=== PATIENT | male | born 1965 | race Caucasian/White ===

== ENCOUNTER 2016-12-07 06:45 | Inpatient (IN) | payer OTHER ==
[~2016-12-07] VITALS: Ht 193 cm; Wt 108.5 kg
--- NOTE | ~2016-12-07 | HP ---
PATIENT'S NAME: TAY GONSALVES [facility] AGE: 51 Y [address] ROOM: [place] [address] [place] [facility] [place]: 12[place]07/2016 History & Physical DISCHARGE DATE: FAMILY PHYSICIAN: Johan Murdock MD ATTENDING PHYSICIAN: QUIN EMMANUEL DATE OF SERVICE: CHIEF COMPLAINT: Nausea and vomiting and diffuse abdominal pain. HISTORY OF PRESENT ILLNESS: This is a 51-year-old male who says that since yesterday around 5 p.m. before his late meal the patient felt this diffuse abdominal pain around intensity 8/10, it felt like a crampy type of pain on and off, lasted for a few minutes without radiation. The patient also felt nauseous, but he did not vomit at that time. He had some food, he had a rib-eye steak and went home; at home, the patient still felt nauseous, therefore, he self-induced vomiting by putting a finger in his throat to cause gag reflex. He vomited about 8-9 times and that he felt much better. This morning, the diffuse abdominal pain came back and also nauseous, but he has not vomited so far. Last time he ate meal was yesterday around 5 p.m., the rib-eye steak. Last time he had a bowel movement was yesterday morning, loose, 1 episode, brown color. Last time he passed flatus was this morning. The patient has had a prior history of colon cancer, status post colectomy without chemotherapy and without radiation and without metastasis and he is in remission and also he never required any colostomy bag. He also had a prior history of appendectomy several years ago. The colon cancer colectomy was roughly 6 years ago. He has never had a small bowel obstruction before. REVIEW OF SYSTEMS: As mentioned in the history of present illness. All other systems were reviewed and were negative except those mentioned in the history of present illness. PAST MEDICAL HISTORY: 1. Colon cancer, status post colectomy, without chemotherapy, without radiation, without metastasis, and also without colostomy bag. That was done roughly 6 years ago and he is in remission according to the patient. 2. Hypertension. 3. Diabetes, type 2. 4. Gastroesophageal reflux disease. PATIENT'S NAME: MAJOR TAY Dwyer [facility] AGE: 51 Y [address] ROOM: [address] [address] [place] [facility] [place]: 12[place]07/2016 History & Physical DISCHARGE DATE: FAMILY PHYSICIAN: Johan Murdock MD ATTENDING PHYSICIAN: QUIN EMMANUEL ALLERGIES: HE IS ALLERGIC TO AN ANTIBIOTIC THAT HE CANNOT REMEMBER, THAT CAUSES RASH. I ASKED HIM TO CALL THE PRIMARY CARE TO FIND OUT, THE PATIENT IS CALLING THE PRIMARY CARE RIGHT NOW. HOME MEDICATIONS: Currently, it has been reconciled. It will be addressed once is ready. SOCIAL HISTORY: The patient is a social alcohol drinker about 5-6 cans of beer roughly 3 days a week. He denies any alcohol withdrawal or any alcohol abuse. He denies any illegal drugs and also denies any cigarette use. FAMILY HISTORY: Father from esophageal cancer at old age. Mother has breast cancer, is still alive. PAST SURGICAL HISTORY: 1. Status post colectomy roughly 6 years ago without colostomy bag. 2. Status post appendectomy many years ago. PHYSICAL EXAMINATION: VITAL SIGNS: At the time of my dictation, temperature 98, blood pressure 140/80, respirations 14, heart rate 85, and saturation 99% on room air. GENERAL APPEARANCE: Alert and oriented x3, in no acute distress. HEENT: Pupils equally round and reactive to light. Extraocular muscles intact. Anicteric sclerae. Nasal turbinates are normal bilaterally. Moist oral mucosa. NECK: No JVD. CARDIOVASCULAR: Regular rate and rhythm. Normal S1, S2. No murmur, no rubs, no gallops. RESPIRATORY: Clear. Chest wall nontender to palpation. No rales, no rhonchi, no wheezing, no crackles. ABDOMEN: Distended. Soft. No abdominal rigidity, no mass. Bowel sounds present but decreased. No ascites. Nontender. EXTREMITIES: No edema in upper or lower extremities. SKIN: No ulcer, no rash, no cyanosis. MUSCULOSKELETAL: No joint pain and also no muscle pain. NEUROLOGIC: Grossly nonfocal. LABORATORY DATA: Troponin less than 0.04, CPK 107. White blood cells 17.1, hemoglobin 18.9, hematocrit 55.5, and platelets 236. Glucose 188, BUN 15, creatinine 0.9, sodium 134, potassium 4.4, chloride 95, and CO2 26. Calcium 10.0, total PATIENT'S NAME: TAY GONSALVES [facility] AGE: 51 Y [address] ROOM: [address] [place] [address] [place] [facility] [place]: 12/07/2016 History & Physical DISCHARGE DATE: FAMILY PHYSICIAN: Johan Murdock MD ATTENDING PHYSICIAN: QUNI EMMANUEL protein 9.5, albumin 4.9, AST 22, ALT 44, alkaline phosphatase 64, total bilirubin 0.7. Anion gap 17.4. GFR more than 60. INR 0.95. PT 26. Urinalysis: Leukocyte negative, negative nitrite, rare bacteria, rare white blood cells. Lipase 142. CK-MB 3.4. IMAGING STUDIES: CT abdomen and pelvis with contrast on admission shows markedly distended stomach with moderately distended proximal small bowel loops and normal- caliber distal small bowel loops. I am uncertain if this may represent early or partial small bowel obstruction versus ileus. Correlation with clinical findings is needed. Fatty infiltration of the liver. Bilateral renal cysts. Postoperative changes of the sigmoid colon. ASSESSMENT/PLAN: 1. Diffuse abdominal pain, nausea and vomiting, secondary to small-bowel obstruction versus ileus: The patient's last bowel movement was yesterday morning, which was loose. Currently, the patient already has NG tube placed and has drained about 700 mL of gastric content about greenish bilious content. Continue NG tube for gastric decompression. N.p.o. Pain control with IV morphine p.r.n. Nausea control with IV Zofran p.r.n. IV fluids for hydration. Also, check a KUB in the morning. Check lactic acid right now. Repeat labs including lactic acid in the morning. Monitor his progress and we will consult General Surgery if necessary. We will continue conservative care for now. The patient is asymptomatic right now. 2. Diabetes, type 2. Check A1c. We will start him on subcutaneous regular insulin, low dose, every 4 hours for now. N.p.o. for now. 3. Hypertension. We will give him IV labetalol p.r.n. and also IV hydralazine p.r.n. while he is n.p.o. I will also add IV Lopressor p.r.n. for heart rate control if needed as well. 4. Gastroesophageal reflux disease. Continue IV Protonix 40 mg p.o. daily one dose right now. 5. DVT prophylaxis: Continue compression devices for now in case he will require any surgical intervention. CODE STATUS: He is a full code. Time spent in care on the day of admission is 35 minutes including 15 minutes was spent on chart review, interview, and also physical examination. The remainder of the time was spent on counseling, including going over the plan of care with the patient, the patient's , and also addressing all their questions and concerns to their satisfaction. Further plan will depend on clinical course. PATIENT'S NAME: TAY GONSALVES [facility] AGE: 51 Y [address] ROOM: [place] [address] [place] [facility] [place]: 12/07/2016 History & Physical DISCHARGE DATE: FAMILY PHYSICIAN: Johan Murdock MD ATTENDING PHYSICIAN: QUIN EMMANUEL QUIN EMAMNUEL MD CC/modl /[id number] D: 833 T: 907 HISTORY & PHYSICAL
--- NOTE | ~2016-12-07 | CON ---
PATIENT'S NAME: TAY GONSALVES [facility] AGE: 51 Y [address] ROOM: [place] [address] [place]: [facility] [place] ADMIT DATE: 12/07/2016 Consultation DISCHARGE DATE: FAMILY PHYSICIAN: Johan Murdock MD ATTENDING PHYSICIAN: QUIN EMMANUEL DATE OF CONSULTATION: 12/09/2016 REFERRING PHYSICIAN: LIA PATTON MD REFERRING PROVIDER: becca Torres. REASON FOR CONSULTATION: Bright red blood per rectum. HISTORY OF PRESENT ILLNESS: This is a very pleasant, 51-year-old gentleman who was admitted originally with diffuse abdominal pain, nausea, and vomiting, likely secondary to ileus. The patient was originally scheduled to be discharged today though had a bowel movement prior to going home that showed evidence of bright red blood per rectum. The patient does have a history of colon cancer, status post resection completed in approximately 2011. He does recall undergoing a full colonoscopy by a surgeon approximately 2-3 years ago. He states at that time, he was notified to return in three years. At this time, his hemoglobin has been stable at 14.6. He does have a history of gastroesophageal reflux disease, currently on omeprazole that has assisted with the symptoms. He does recall that the patient's father did have esophageal cancer. He denies any history of upper endoscopy. The patient currently denies any chest pain, chest pressure, shortness of breath, fever, chills, night sweats, abdominal pain, weight loss, nausea, or vomiting. PAST MEDICAL HISTORY: History of colon cancer, status post colectomy without chemoradiation or metastasis, completed in 2011, hypertension, diabetes mellitus type 2, and gastroesophageal reflux disease. PAST SURGICAL HISTORY: Partial colectomy, colonoscopy 2-3 years ago, left ear surgery, appendectomy, and cystectomy. SOCIAL HISTORY: The patient is a social alcohol drinker. Denies any alcohol withdrawal or abuse. Denies any illicit drug use or tobacco use. FAMILY HISTORY: PATIENT'S NAME: TAY GONSALVES [facility] AGE: 51 Y [address] ROOM: [place] [address] [place] [facility] [place]MIT DATE: 12/07/2016 Consultation DISCHARGE DATE: FAMILY PHYSICIAN: Johan Murdock MD ATTENDING PHYSICIAN: QUIN EMMANUEL The patient's father had esophageal cancer in old age. The patient's mother had breast cancer. Still alive. ALLERGIES: DOXYCYCLINE. CURRENT MEDICATIONS: Please refer to the medication administration record. REVIEW OF SYSTEMS: An all point review of systems was completed. All were negative except for those identified in the history of present illness. PHYSICAL EXAMINATION: GENERAL: A very pleasant, 51-year-old gentleman who appears to be in no acute distress. VITAL SIGNS: Temperature 98.0, pulse of 62, respirations of 21, blood pressure 127/72, and oxygen saturation 96% on room air. SKIN: [place], warm, dry. No jaundice. HEENT: Head is normocephalic and atraumatic. Pupils are equal, round, and reactive to light. Sclerae are clear. Nonicteric. Oral mucosa is pink and moist. No thyromegaly. NECK: Soft and supple. CARDIOVASCULAR: Regular. Normal S1, S2. RESPIRATORY: Respirations even and unlabored. LUNGS: Clear to auscultation. ABDOMEN: Soft, round, nontender, and nondistended. Bowel sounds are positive x4 quadrants. MUSCULOSKELETAL: No muscle weakness or atrophy. EXTREMITIES: No clubbing, cyanosis, or edema. NEUROLOGIC: Grossly nonfocal. LABS AND DIAGNOSTICS: Laboratory obtained on 12/08/2016 showed a white blood cell count of 9.7, hemoglobin of 14.6, hematocrit of 42.6, and platelets of 245. Chemistry panel includes a glucose of 96, BUN of 22, creatinine 0.7. Sodium 139, potassium 3.8, chloride 105, CO2 of 26. Liver enzymes have all been within normal limits. Lipase was 142. Abdominal KUB completed on 12/08/2016 showed nonobstructive bowel gas pattern. ASSESSMENT AND PLAN: Again, this is a very pleasant, 51-year-old gentleman who was admitted with ileus, now resolved. The patient was originally scheduled to be discharged home today though he had a bowel movement with bright red blood per rectum. The patient does have a history of colon cancer, status post resection with PATIENT'S NAME: TAY GONSALVES [facility] AGE: 51 Y [address] ROOM: [place] [address] [place]: [facility] [place]MIT DATE: 12/07/2016 Consultation DISCHARGE DATE: FAMILY PHYSICIAN: Johan Murdock MD ATTENDING PHYSICIAN: QUIN EMMANUEL last colonoscopy done 2-3 years ago. The patient's hemoglobin has been stable though secondary to his history, we do recommend further workup. The patient will undergo colonoscopy. Suprep will be given in preparation for the procedure. In regard to the patient's history of reflux disease as well as family history of esophageal cancer, the patient will undergo an upper endoscopy at the same time for further evaluation and baseline appearance. This was discussed in depth with the patient as he verbalizes understanding. Further recommendations will be given status post upper endoscopy and colonoscopy. Thank you for this consult. RANDY WIN APRN FOR LIA PATTON MD MMF/modl /[id number] d: 12/09/16 2214 t: 12/12/16 0839, CONSULTATION REPORT
--- NOTE | ~2016-12-07 | DS ---
PATIENT'S NAME: TAY GONSALVES [facility] AGE: 51 Y [address] ROOM: [address] [address] LOCATION: [facility] [place] ADMIT DATE: 12/07/2016 Discharge Summary DISCHARGE DATE: 12/09/2016 FAMILY PHYSICIAN: Johan Murdock MD ATTENDING PHYSICIAN: Dov Arias FINAL DIAGNOSES: 1. Ileus. 2. Diabetes mellitus type 2. 3. Essential hypertension. 4. History of colon cancer, status post resection. CONSULTANTS ON THE CASE: None. HOSPITAL COURSE: Please see details of admission and H and P by Dr. Arias. Briefly, the patient was admitted with severe nausea and vomiting and abdominal pain. CT scan showed early small bowel obstruction versus ileus. NG tube was placed for decompression. The patient was covered with sliding scale insulin and Accu-Cheks q.4 h. He was started on normal saline, p.r.n. hydralazine and labetalol were utilized for blood pressure control. The patient got IV morphine and Zofran for pain and nausea and Protonix was utilized for GI prophylaxis. The patient showed significant improvement on hospital day #2. His nausea was much improved, he was passing flatus, NG did have quite a bit of output initially, but quickly tapered off. The patient's abdomen was soft and he had bowel sounds in 4 quadrants. It was decided then to clamp the NG for 4 hours and check for residual and if less than 150 mL NG was discontinued. The patient started on clear liquid diet and was able to advance the next hospital day. The patient tolerated regular food and it was felt that the patient could safely be transferred home and the patient was agreeable to this. The patient was discharged in stable condition. DIAGNOSTICS: Blood sugars ranged from 79 to 151, on admission, sodium is 134, potassium 4.4, chloride 95, bicarb 26, glucose 188, BUN 15, creatinine 0.9, and lipase 142. Cardiac enzymes were within normal limits. Closer to discharge, sodium was 139, potassium 3.8, chloride 105, bicarb 26, glucose 96, BUN 22, and creatinine 0.7. Hemoglobin A1C was 7.4%. Hemogram remained within normal limits. DISCHARGE INSTRUCTIONS: The patient is discharged home. He will follow up with Dr. Murdock in 1 week. DIET: Diabetic resume and advance slowly. ACTIVITY: As tolerated. PATIENT'S NAME: TAY GONSALVES [facility] AGE: 51 Y [address] ROOM: [place] [address] LOCATION: [facility] [place] ADMIT DATE: 12/07/2016 Discharge Summary DISCHARGE DATE: 12/09/2016 FAMILY PHYSICIAN: Johan Murdock MD ATTENDING PHYSICIAN: Dov Arias DISCHARGE MEDICATIONS: 1. Prilosec 20 mg daily. 2. Janumet 1 tab twice daily. The patient recommended to hold until tolerating full regular diet. 3. Lisinopril/hydrochlorothiazide 20/25 one tablet daily. 4. Aspirin 81 mg daily. 5. Invokana 300 mg daily, hold until tolerating full regular diet. 6. Multivitamin tab 1 tablet daily. 7. Ambien 10 mg at bedtime p.r.n. I do appreciate participating in this patient's care and thank you very much for the ability to serve him while hospitalized at [facility]. Time spent coordinating details of discharge was less than 30 minutes of which was spent coordinating with consulting physicians and Care Management, completion of medication reconciliation, and education to the patient and family on the above-mentioned diagnoses. Addendum: Pt developed bright red blood per rectum at the time of dismissal. We consulted Dr. Ram for evaluation in light of his history of colon CA. Dr. Ram recommended upper and lower evaluations. This was done on 12/10. Biopsies were taken from both upper and lower examinations. The patient recovered unremarkably. He was discharged in stable condition. Follow up for biopsies will be called from Dr. Ram's office. ZEFERINO ALONSO FOR SOPHY SUMNER MD LAUREN/modl /[id number] d: 12/10/16 0529 t: 12/28/16 1619, DISCHARGE SUMMARY
--- NOTE | ~2016-12-07 | ER ---
PATIENT'S NAME: TAY GONSALVES [facility] AGE: 51 Y [address] ROOM: [place] [address] LOCATION: [facility] [place] ADMIT DATE: 12/07/2016 ER/Outpatient Report DISCHARGE DATE: FAMILY PHYSICIAN: Johan Murdock MD ATTENDING PHYSICIAN: QUIN EMMANUEL Time of Arrival: 0645 hours. Time of Evaluation: 0648 hours. CHIEF COMPLAINT: Abdominal pain. HISTORY OF PRESENT ILLNESS: The patient is a 51-year-old male who presents to the emergency department today with chief complaint of abdominal pain. He reports he feels bloated, having gas. He has had nausea and vomiting. Reports constipation, and he has not been passing gas since last night about 7:00 p.m. Denies any fevers or chills. No diarrhea. No blood in the stool. No dark tarry stools. Denies any urinary frequency, urgency, or painful urination. The pain is fullness in the upper abdomen, currently moderate in severity. PAST MEDICAL HISTORY: 1. Colon cancer. 2. Cpv-lddaeol-uqxvjbsra diabetes. 3. Hypertension. PAST SURGICAL HISTORY: 1. Colon resection. 2. Appendectomy. SOCIAL HISTORY: The patient denies any tobacco use. Reports alcohol use every 2 to 3 days. Drinks about 5 to 6 beers at a time. Denies any illicit drug use. ALLERGIES: NO KNOWN DRUG ALLERGIES. MEDICATIONS: Please see list. PRIMARY CARE DOCTOR: Dr. Johan Murdock in [place]. REVIEW OF SYSTEMS: All systems are reviewed by myself are negative with the exception of those PATIENT'S NAME: TAY GONSALVES [facility] AGE: 51 Y [address] ROOM: [place] [address] LOCATION: [facility] [place] ADMIT DATE: 12/07/2016 ER/Outpatient Report DISCHARGE DATE: FAMILY PHYSICIAN: Johan Murdock MD ATTENDING PHYSICIAN: QUIN EMMANUEL discussed in the HPI and past medical history. PHYSICAL EXAMINATION: VITAL SIGNS: Weight 110.7 kg. Blood pressure 138/92, pulse 98, respiratory rate 19, temperature 97.1, and oxygen saturation 98% on room air. GENERAL: The patient is a 51-year-old male, who appears stated age, in mild acute distress secondary to pain in the abdomen. HEENT: Normocephalic and atraumatic. Pupils are equal, round, and reactive to light. Oropharynx is clear. NECK: Supple. There is no nuchal rigidity. CARDIOVASCULAR: Regular rate and rhythm. No murmurs, rubs, or gallops. LUNGS: Clear to auscultation bilaterally. No wheezes, rales, or rhonchi. ABDOMEN: Soft. Mild upper tenderness to palpation. Has hypoactive bowel sounds. MUSCULOSKELETAL: The patient moves all 4 extremities. SKIN: Warm and dry. There are no rashes or lesions noted. LABORATORY DATA AND X-RAYS: CBC; white blood cell count 17.1, hemoglobin 18.9, and hematocrit 55.5. Coags are normal. CMP; sodium 134, chloride 95, and glucose 188. LFTs are normal. Lipase is normal. Cardiac enzymes are normal. Urinalysis shows 30 protein, 1000 glucose, 50 ketones, and rare wbc's, rbc's, epithelials, and bacteria. CT scan of the abdomen and pelvis was obtained. I have discussed the results with the radiologist. It does show a markedly distended stomach with moderately distended proximal small bowel loops and normal-caliber distal small bowel loops. Radiology is uncertain. May represent early to partial small bowel obstruction versus ileus. There is fatty infiltration of the liver. There are bilateral renal cysts. There are postoperative changes in the sigmoid colon. IMPRESSION: 1. Markedly distended stomach and distended proximal small bowel loops concern for early versus partial small bowel obstruction versus ileus. 2. Nausea and vomiting. 3. Initial visit. EMERGENCY DEPARTMENT COURSE: The patient was brought back to the examination room. Seen and evaluated by myself. IV was established. Laboratory analysis and imaging are obtained as described above. The patient was given a liter of normal saline IV. She was given 4 mg of Zofran IV. The patient was given 1 mg of Versed IV and an NG tube was placed. The patient was given another liter of normal saline. I have discussed the case with Dr. Emmanuel, who is on-call for the Hospitalist Service. He does agree to accept the patient for further evaluation, treatment, and management. PATIENT'S NAME: TAY GONSALVES [facility] AGE: 51 Y [address] ROOM: [place] [address] LOCATION: [facility] [place] ADMIT DATE: 12/07/2016 ER/Outpatient Report DISCHARGE DATE: FAMILY PHYSICIAN: Johan Murdock MD ATTENDING PHYSICIAN: QUIN EMMANUEL DISPOSITION: The patient is admitted under the care of the Hospitalist Service in stable condition. DO KENYATTA CRAFT/gerard /[id number] d: 12/07/16 1324 t: 12/16/16 0651, OUTPATIENT REPORT
[2016-12-07 07:45] LABS: BASOPHIL % 0.2 %; HEMATOCRIT 55.5 % (37.0-53.0); HEMOGLOBIN 18.9 g/dL (12.0-17.0); IMMATURE GRANULOCYTE # 0.1 K/uL (0.0-0.3); IMMATURE GRANULOCYTE % 0.5 %; LYMPHOCYTE # 0.9 K/uL (0.8-4.0); LYMPHOCYTE % 5.3 %; MCH 30.4 pg (27.0-34.0); MCHC 34.1 gm/dL (32.0-36.5); MCV 89.2 fl (83.0-98.0); MONOCYTE # 0.4 K/uL (0.0-1.0); MONOCYTE % 2.3 %; MPV 9.8 fl (9.4-12.4); NEUTROPHIL # (ANC) 15.6 K/uL (1.4-9.0); NEUTROPHIL % 91.7 %; NRBC % 0 /100WBC (0-0.00); PLATELET COUNT 336 K/uL (150-450); RDW-CV 12.9 % (11.9-14.6)
[2016-12-07 07:48] LABS: RBC 6.22 M/uL (4.00-6.00); WBC 17.1 K/uL (4.0-11.0)
[2016-12-07 07:52] LABS: INR - (THERAPEUTIC) 0.95 (0.92-1.07); PTT 26 SECONDS (25-32)
[2016-12-07 08:03] LABS: ALBUMIN 4.9 gm/dL (3.5-5.0); ALK PHOS 64 IU/L (33-138); ALT 44 IU/L (12-78); BLOOD UREA NITROGEN 15 mg/dL (6-24); CHLORIDE 95 mMol/L (96-110); CO2 26 mMol/L (22-32); CPK 127 IU/L (35-332); CREATININE 0.9 mg/dL (0.6-1.3); SODIUM 134 mMol/L (135-145); TOTAL BILIRUBIN 0.7 mg/dL (0.0-1.5)
[2016-12-07 08:05] LABS: ANION GAP 17.4 (10.0-19.0); AST 22 IU/L (10-40); POTASSIUM 4.4 mMol/L (3.7-5.1); TOTAL PROTEIN 9.5 g/dL (6.0-8.4)
[2016-12-07 08:06] LABS: ESTIMATED GFR (MDRD EQUATION) > 60
[2016-12-07 08:50] LABS: BILIRUBIN URINE NEGATIVE (NEGATIVE); BLOOD URINE NEGATIVE /UL (NEGATIVE); COLOR URINE YELLOW (YELLOW); GLUCOSE URINE 1000 mg/dL (NEGATIVE); KETONE URINE 50 mg/dL (NEGATIVE); LEUKOCYTES URINE NEGATIVE /UL (NEGATIVE); NITRITE URINE NEGATIVE (NEGATIVE); PROTEIN URINE 30 mg/dL (NEGATIVE); TURBIDITY URINE CLEAR (CLEAR); UROBILINOGEN URINE NORMAL (NORMAL)
[2016-12-07 08:58] LABS: BACTERIA URINE RARE (NEGATIVE); EPITHELIAL URINE RARE #/HPF (NEGATIVE); RBC URINE RARE #/HPF (NEGATIVE); WBC URINE RARE #/HPF (NEGATIVE)
[2016-12-07] MEDS ORDERED: JANUMET 50-1,01 EACH PO (13:30)
[2016-12-07] MEDS ORDERED: LISINOPRIL-HCT1 EAC2 PO (13:31)
[2016-12-07] MEDS ORDERED: PRILOSEC20 MG PO (13:31)
[2016-12-07] MEDS ORDERED: ASPIRIN LO-DOSE81 MG PO (13:31)
[2016-12-07] MEDS ORDERED: INVOKANA300 MG PO (13:32)
[2016-12-07] MEDS ORDERED: THERA-VITE W/ B1 TAB PO (13:32)
[2016-12-07] MEDS ORDERED: AMBIEN10 MG PO (13:33)
--- NOTE | 2016-12-07 13:53 | NUR ---
Patient is 51 yo male admitted from the ER after coming about 6:30 this am. patient lives in [place] w/his , works at [employer] in [employer] day shift. Patient states he was feeling pretty good yesterday, but did have 2 loose stools yesterday morning. states he didn't eat a lot yesterday but they were planning to go out for supper for Father's Day and he was saving up for that. Patient states he took a couple of bites of his supper and started having pains and wasn't able to eat anymore. States he did get to feeling a little better through the night, but this morning knew he was not going to be able to go to work and came to the ER instead. With his history of colon cancer, he and his were concerned and didn't want to delay getting checked out. IV is patent in left antecubital space. 10 ml NS is flushed through line without burning, no erythema or edema is noted at site. Education is given as documented. patient and deny questions. pneumatics are on bilateral calves. pt darek well. call light is within reach. patient did use urinal. denies other needs at this time. report is given to SCOTTY Sullivan.
--- NOTE | 2016-12-07 16:49 | NUR ---
PATIENT ADMITTED AFTER HAVING INCREASED ABDOMINAL PAIN, N/V. NG TUBE AT LOW INTERMITTENT SUCTION. 100 ML TODAY. IV LEFT ANTECUBITAL AT 75 ML/HR. WILL HAVE KUB XRAY AND BLOOD WORK IN AM. NO N/V SINCE ADMISSION. NPO. IN ROOM.
--- NOTE | 2016-12-07 17:18 | NUR ---
patient admitted after having nausea and vomiting last evening, abdominal pain. hx of bowel cancer and colon resection. type 2 diabetic.
--- NOTE | 2016-12-08 05:21 | NUR ---
Significant Event: PATIENT ALERT AND ORIENTATED. AMBULATES WITH ONE ASSIST GB. NPO NG TUBE LOW INTETRMITTENT SUCITON. TYPE 2 DIABETICS ACCUCHECK Q4 HR SLIDING SCALE. KUB THIS AM. PAITENT STATES ABDOMINAL PAIN IS BETTER AND NOT AT BLOATED. NO COMPLAINTS OF PAIN OR DISCOMFORT. IV TO LEFT AC SPACE FLUIDS RUNNING. IN ROOM WITH PATIENT. Follow up:
[2016-12-08 07:16] LABS: HEMOGLOBIN 14.6 g/dL (12.0-17.0); MCH 31.1 pg (27.0-34.0); MCV 90.6 fl (83.0-98.0); MPV 9.7 fl (9.4-12.4); RBC 4.7 M/uL (4.00-6.00); RDW-CV 13.2 % (11.9-14.6); WBC 9.7 K/uL (4.0-11.0)
[2016-12-08 07:17] LABS: HEMATOCRIT 42.6 % (37.0-53.0); MCHC 34.3 gm/dL (32.0-36.5)
[2016-12-08 07:35] LABS: ANION GAP 11.8 (10.0-19.0); BLOOD UREA NITROGEN 22 mg/dL (6-24); CALCIUM 7.8 mg/dL (8.5-10.5); CHLORIDE 105 mMol/L (96-110); CO2 26 mMol/L (22-32); CREATININE 0.7 mg/dL (0.6-1.3); ESTIMATED GFR (MDRD EQUATION) > 60; POTASSIUM 3.8 mMol/L (3.7-5.1); SODIUM 139 mMol/L (135-145)
--- NOTE | 2016-12-08 12:28 | NUR ---
(-)MST; WT HAS BEEN STABLE OVER THE LAST 6 MOS. PT REPORTS A 15-20# WT LOSS OVER THE LAST COUPLE OF YEARS D/T CHANGES IN HIS EATING HABITS. HE HAS BEEN TRYING TO WATCH HIS PORTION SIZES AND GAVE UP POP WHEN HE WAS DX WITH TYPE 2 DM. NAUSEA IS IMPROVED, PER PT. NG IN PLACE. PT STARTED ON ICE CHIPS. WILL ASSIST NEEDED
--- NOTE | 2016-12-08 16:38 | NUR ---
Significant Event:Is A/O.Abd.soft with positive BS.Is passing flatus.No stools yet.Voiding ok.Clamped NG for 5hrs & had minimal amt.out when hooked up to suction so dc'd NG at 1630.IV in Lt.anticubital.Is ambulant.Is on accuchecks.No c/o pain.No N/V. Follow up:
--- NOTE | 2016-12-09 04:05 | NUR ---
Significant Event: Patient alert and oriented X4. Up ad jeff in room. helps with cares. NG d/c yesterday afternoon. Denies any nausea/pain this shift. Walked in halls at least 3 times with . IV to L) AC with NS at 75ml per hour. Abdominal soft with active bowel sounds. States he is passing gas. Accuchecks every 4 hours still. No intervention needed. Called Dr. Islas and got ok for clear liquid diet tonight and advance as tolerated in AM. May go home today? Follow up: Monitor for nausea
--- NOTE | 2016-12-09 18:11 | NUR ---
Patient is alert and oriented, VSS, on room air. Independent. Q4 hour accuchecks, no insulin given. Was on a regular diet but has been moved back to [facility] for the night. L) AC is saline locked. Was set to go home, had a bowel movement that had some blood in it. Will have a colonoscopy tomorrow morning.
--- NOTE | 2016-12-10 05:08 | NUR ---
SIGNIFICANT EVENT: VSS. A&O X3. AD JESU. IV SL L) AC. FINISHED BOWEL PREP FOR COLONOSCOPY AND EGD IN THE AM FOR 1 BLOODY STOOL ON 12/09. NPO AFTER 0500. WALKED HALLS X2, PREOP CHECKLIST STARTED. PATIENT STATES THAT STOOL IS APPEARING CLEARER. AT BEDSIDE.
--- NOTE | 2016-12-10 13:15 | NUR ---
DISCHARGE: Pt. was educated on colonoscopy, ileus, discharge instructions, and medication directions. No new scripts. Verbalized understanding of teaching, no questions or concerns. IV removed by RN. Left with all belongings and prescriptions. Patient taken to front door by aide and driven home by .
== END 2016-12-10 13:15 | disposition disaster alternative care site (69) | DRG 389 ==
LOC: GMED 06:45 → GMSU 12:21
PROVIDERS: Emergency Medicine; ADMIT Internal Medicine
PROC: 0DBE8ZZ Excision of Large Intestine, Via Natural or Artificial Opening Endoscopic (ICD-10-PCS; principal; 2016-12-10)
PROC: 0DB58ZX Excision of Esophagus, Via Natural or Artificial Opening Endoscopic, Diagnostic (ICD-10-PCS; principal; 2016-12-10)
PROC: 0DB68ZX Excision of Stomach, Via Natural or Artificial Opening Endoscopic, Diagnostic (ICD-10-PCS; principal; 2016-12-10)
DX: K56.7 Ileus, unspecified (principal); K62.5 Hemorrhage of anus and rectum; I10 Essential (primary) hypertension; K64.4 Residual hemorrhoidal skin tags; K21.9 Gastro-esophageal reflux disease without esophagitis; E11.9 Type 2 diabetes mellitus without complications; Z80.3 Family history of malignant neoplasm of breast; Z80.0 Family history of malignant neoplasm of digestive organs; Z85.038 Personal history of other malignant neoplasm of large intestine; Z79.82 Long term (current) use of aspirin; Z90.49 Acquired absence of other specified parts of digestive tract
CPT/HCPCS: C9113; J1200; J2250; J2405; J7030; Q9967